=== PATIENT | male | born 1985 | race Hispanic/Latino ===

== ENCOUNTER 2025-02-26 08:05 | Emergency (ER) | payer OTHER ==
--- NOTE | 2025-02-26 08:16 | EDPHYS ---
Physician Documentation [facility] Name: Modesto Santoro Jr Age: 39 yrs Sex: Male : 1985 Arrival Date: 02/26/2025 Time: 08:05 Bed IW1 Private MD: ED Physician Faiza Santos HPI: 02/26 08:16 This 39 yrs old Male presents to ER via Ambulatory with complaints of Suture dr5 Removal - LT FT. 08:16 This 39 yrs old Male presents to ER via Ambulatory with complaints of Suture dr5 Removal - LT FT. 08:16 The patient has sutures on the plantar aspect of left first toe. Patient is a dr5 39-year-old male with a past medical history coming in with suture removal to left great toe. Patient reports he had sutures placed approximately 2 weeks ago from cutting glass. Patient denies difficulty ambulating, discharge from wound, or redness.. Historical: - Allergies: 08:15 No Known Allergies; jl7 - PMHx: 08:15 None; jl7 - PSHx: 08:15 Right ACL; jl7 - Immunization history:: Adult Immunizations up to date. - Infectious Disease History:: Denies. - Social history:: Smoking status: Patient denies any tobacco usage or history of. ROS: 08:16 Constitutional: as per hpi dr5 Exam: 08:16 Constitutional: This is a well developed, well nourished patient who is awake, alert, dr5 and in no acute distress. Head/Face: Normocephalic, atraumatic. Eyes: Pupils equal round and reactive to light, extra-ocular motions intact. Lids and lashes normal. Conjunctiva and sclera are non-icteric and not injected. Cornea within normal limits. Periorbital areas with no swelling, redness, or edema. Neck: Trachea midline, no thyromegaly or masses palpated, and no cervical lymphadenopathy. Supple, full range of motion without nuchal rigidity, or vertebral point tenderness. No Meningismus. Chest/axilla: Normal chest wall appearance and motion. Nontender with no deformity. No lesions are appreciated. Cardiovascular: Regular rate and rhythm with a normal S1 and S2. Normal PMI, no JVD. No pulse deficits. Respiratory: Lungs have equal breath sounds bilaterally, clear to auscultation. No rales, rhonchi or wheezes noted. No increased work of breathing, no retractions or nasal flaring. Back: No spinal tenderness. No costovertebral tenderness. Full range of motion. Skin: Warm, dry with normal turgor. Normal color with no rashes, no lesions, and no evidence of cellulitis. MS/ Extremity: Pulses equal, no cyanosis. Neurovascular intact. Full, normal range of motion. Neuro: Awake and alert, GCS 15, oriented to person, place, time, and situation. Cranial nerves II-XII grossly intact. Motor strength 5/5 in all extremities. Sensory grossly intact. Cerebellar exam normal. Normal gait. Vital Signs: 08:13 BP 125 / 75; Pulse 69; Resp 15; Temp 97; Pulse Ox 98% ; Pain 0/10; jl7 08:13 Pain Scale: Adult jl7 Procedures: 08:16 Suture/Staple removal: Removed 4 sutures, from plantar aspect of left first toe, site dr5 appears well healed, dressed with Patient tolerated well. MDM: 08:09 Medical Screening Exam initiated dr5 08:16 Data reviewed: vital signs, nurses notes. Care significantly affected by the following dr5 Social Determinants of Health: Poor access to healthcare and/or lack of insurance, Poor access to transportation, Problems related to employment. Counseling: I had a detailed discussion with the patient and/or guardian regarding the historical points, exam findings, and any diagnostic results supporting the discharge/admit diagnosis, the presence of at least one elevated blood pressure reading (>120/80) during this emergency department visit, the need for outpatient follow up, for definitive care, a family practitioner, to return to the emergency department if symptoms worsen or persist or if there are any questions or concerns that arise at home. ED course: 4 sutures removed without complication. Will have patient follow-up primary care doctor as needed. Plastics question. Strict ER precautions given.. Administered Medications: No medications were administered Disposition Summary: 02/26/25 08:15 Discharge Ordered Notes: Location: Home dr5 Condition: Stable dr5 Diagnosis - Encounter for removal of sutures dr5 Followup: dr5 - With: Emergency Department - When: As needed - Reason: Worsening of condition Followup: dr5 - With: Private Physician - When: As needed - Reason: Recheck today's complaints, Continuance of care, Re-evaluation by your physician Discharge Instructions: - Discharge Summary Sheet dr5 - Suture Removal, Care After dr5 Forms: - Medication Reconciliation Form dr5 - Patient Portal Instructions dr5 - Leadership Thank You Letter dr5 Signatures: Mookie Hines, RN RN jl7 Cornelius Mckeon, DESI JACOBSON-Cdr5
--- NOTE | 2025-02-26 08:16 | ER ---
Nurse's Notes [facility] Name: Modesto Santoro Jr Age: 39 yrs Sex: Male : 1985 Arrival Date: 02/26/2025 Time: 08:05 Bed IW1 Private MD: Diagnosis: Encounter for removal of sutures Presentation: 02/26 08:13 Chief complaint: Patient states: Sutures to left big toe, placed 02/14/25, denies pain. jl7 Coronavirus screen: At this time, the client does not indicate any symptoms associated with coronavirus-19. Ebola Screen: No symptoms or risks identified at this time. Initial Sepsis Screen: Does the patient meet any 2 criteria? No. Patient's initial sepsis screen is negative. Does the patient have a suspected source of infection? No. Patient's initial sepsis screen is negative. Risk Assessment: Do you want to hurt yourself or someone else? Patient reports no desire to harm self or others. Onset of symptoms was February 14, 2025. 08:13 Method Of Arrival: Ambulatory [facility] 08:13 Acuity: JACQUELYN 4 jl7 Triage Assessment: 08:15 General: Appears in no apparent distress. comfortable, Behavior is calm, cooperative, jl7 appropriate for age. Pain: Denies pain. Neuro: Brasher Agitation-Sedation Scale (RASS): 0 - Alert and Calm Level of Consciousness is awake, alert, obeys commands, Oriented to person, place, time, situation. Cardiovascular: Patient's skin is warm and dry. Respiratory: Airway is patent Respiratory effort is even, unlabored, Respiratory pattern is regular, symmetrical. Derm: Skin is pink, warm \T\ dry. Historical: - Allergies: 08:15 No Known Allergies; jl7 - PMHx: 08:15 None; jl7 - PSHx: 08:15 Right ACL; jl7 - Immunization history:: Adult Immunizations up to date. - Infectious Disease History:: Denies. - Social history:: Smoking status: Patient denies any tobacco usage or history of. Screenin:16 [facility] ED Fall Risk Assessment (Adult) History of falling in the last 3 months, jl7 including since admission No falls in past 3 months (0 pts) Confusion or Disorientation No (0 pts) Intoxicated or Sedated No (0 pts) Impaired Gait No (0 pts) Mobility Assist Device Used No (0 pt) Altered Elimination No (0 pt) Score/Fall Risk Level 0 - 2 = Low Risk Oriented to surroundings, Maintained a safe environment. Abuse screen: Denies threats or abuse. Denies injuries from another. Nutritional screening: No deficits noted. Tuberculosis screening: No symptoms or risk factors identified. Vital Signs: 08:13 BP 125 / 75; Pulse 69; Resp 15; Temp 97; Pulse Ox 98% ; Pain 0/10; jl7 08:13 Pain Scale: Adult jl7 ED Course: 08:09 Patient arrived in ED. cj3 08:09 Cornelius Mckeon FNP-C [facility] 08:09 Faiza Santos MD is Attending Physician. dr5 08:15 Triage completed. jl7 08:15 Arm band placed on right wrist. jl7 08:16 Patient has correct armband on for positive identification. Provided Education on: jl7 discharge. 08:16 No provider procedures requiring assistance completed. Patient did not have IV access jl7 during this emergency room visit. Administered Medications: No medications were administered Medication: 08:16 VIS not applicable for this client. jl7 Outcome: 08:15 Discharge ordered by . dr5 08:16 Discharged to home ambulatory, jl7 08:16 Condition: stable 08:16 Discharge instructions given to patient, Instructed on discharge instructions, follow up and referral plans. Demonstrated understanding of instructions, follow-up care, 08:18 Patient left the ED. jl7 Signatures: Mookie Hines, RN RN jl7 Cornelius Mckeon FNP-C MULTIPLE SCLEROSIS NURSE-Cdr5 Karla Otoole cj3
[2025-02-26 08:23] VITALS: BP 125/75; TEMP 97; O2SAT 98
== END 2025-02-26 08:18 | disposition home or self-care (01) ==
LOC: ER 08:05
DX: Z48.02 Encounter for removal of sutures (principal)
CPT/HCPCS: 99282